=== PATIENT | male | born 1965 | race Caucasian/White ===

== ENCOUNTER 2017-11-26 10:21 | Emergency (ER) | payer BC ==
[2017-11-26 10:59] VITALS: BP 106/56
--- NOTE | 2017-11-26 11:05 | UC ---
Back Pain HPI - HPI Summary HPI Summary: 52 yo male presents with low back pain. He tells me that he is an avid hiker and 2 days ago was hiking and slipped on some rocks - legs went out from underneath him and his lower back landed on a rock/hard patch. Had immediate pain, but was able to get up and continue. Has not taken anything for his pain. Last night went to his daughter's recital. Denies numbness, tingling, dysuria, loss of bladder/bowel control, or saddle anesthesia. - History of Current Complaint Chief Complaint: UCBackPain Stated Complaint: LOWER BACK INJURY Time Seen by Provider: 11/26/17 11:05 Hx Obtained From: Patient Onset/Duration: Sudden Onset Severity Initially: Severe Severity Currently: Severe Pain Intensity: 9 Pain Scale Used: 0-10 Numeric Character: Aching, Throbbing, Spasmodic, Stiffness Aggravating Factor(s): Movement Alleviating Factor(s): Rest, Position Associated Signs And Symptoms: Positive: Negative - Allergies/Home Medications Allergies/Adverse Reactions: Allergies Allergy/AdvReac Type Severity Reaction Status Date / Time No Known Allergies Allergy Verified 11/26/17 11:00 PMH/Surg Hx/FS Hx/Imm Hx - Additional Past Medical History Additional PMH: None Previously Healthy: Yes - Surgical History Surgical History: Yes Surgery Procedure, Year, and Place: hernia repair, tendon repair. trauma to R shoulder. back surgery. trach w/reversal - Family History Known Family History: Positive: None - Social History Occupation: Employed Full-time Lives: With Family Alcohol Use: None Substance Use Type: None Smoking Status (MU): Never Smoked Tobacco - Immunization History Most Recent Tetanus Shot: UTD Review of Systems Constitutional: Negative Skin: Negative Respiratory: Negative Cardiovascular: Negative Gastrointestinal: Negative Genitourinary: Negative Neurovascular: Negative Musculoskeletal: Other: - LBP Neurological: Negative Psychological: Negative All Other Systems Reviewed And Are Negative: Yes Physical Exam - Summary Physical Exam Summary: GENERAL: NAD. WDWN. No pain distress. SKIN: No rashes, sores, lesions, or open wounds. NECK: Supple. FROM. Nontender. No lymphadenopathy. CHEST: CTAB. No r/r/w. No accessory muscle use. Breathing comfortably and in no distress. CV: RRR. Without m/r/g. Pulses intact. Brisk cap refill. MSK: TTP over lumbar paraspinal muscles and area of impact on left. Pain with flexion and extension of spine. Positive SLR b/l. Strength 5/5 B/L LEs including dorsiflexion and plantar flexion. FROM B/L LEs. No edema. NEURO: Alert. CN II-XII grossly intact. Sensations intact B/L LEs L3-S1. PSYCH: Age appropriate behavior. Triage Information Reviewed: Yes Vital Signs: Initial Vital Signs Temp 97.4 F 11/26/17 10:55 Pulse 76 11/26/17 10:55 Resp 18 11/26/17 10:55 BP 106/56 11/26/17 10:55 Pulse Ox 98 11/26/17 10:55 Back Pain Course/Dx - Course Course Of Treatment: Given trauma, I wanted to order a CT of the lumbar spine, but pt refused as he has had CTs in the past and is afraid of accumulating radiation. Advised that if XRs reveal abnormalities or if his pain persists - a CT and/or MRI shoulder be performed. XR: IMPRESSION: Degenerative disc disease at L3-L4, L4-L5 and L5-S1. 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 Suspect contusion. He is asking for pain medication. He has taken oxycodone in the past with good relief - does not want percocet as he takes tylenol on his own. f/u prn with PCP. [facility] Reference #: [id number] and ok - Differential Dx/Diagnosis Provider Diagnoses: Low back contusion. Fall Discharge - Sign-Out/Discharge Documenting (check all that apply): Discharge/Admit/Transfer - Discharge Plan Condition: Stable Disposition: HOME Prescriptions: Cyclobenzaprine TAB* [Flexeril 10 MG TAB*] 10 mg PO TID PRN #21 tab PRN Reason: Pain oxyCODONE TAB* [Roxycodone TAB 5 mg*] 5 mg PO Q8H PRN #9 tab MDD 3 PRN Reason: Pain Patient Education Materials: Acute Low Back Pain (ED) Referrals: Sukhdev Carrillo MD [Primary Care Provider] - Additional Instructions: If you develop a fever, shortness of breath, chest pain, new or worsening symptoms - please call your PCP or go to the ED. - Billing Disposition and Condition Condition: STABLE Disposition: HOME
--- NOTE | 2017-11-26 12:12 | RAD ---
Indication: Bilateral hip pain. 2 views of the right hip and 2 views of left hip are reviewed. The right hip demonstrates moderate degenerative changes. Osteophyte formation is noted. Mild joint space narrowing is noted. The left hip demonstrates degenerative changes of left hip. Osteophyte formation is noted. Pelvic ring is intact. Sacroiliac joints are unremarkable. 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
--- NOTE | 2017-11-26 12:14 | RAD ---
Indication: Low back pain. 5 views of lumbar spine demonstrate vertebral bodies to be normal in height. Mild disc space narrowing at L3-L4, L4-L5 and L5-S1 is noted. The spinal canal appears to be intact. No fracture is identified. IMPRESSION: Degenerative disc disease at L3-L4, L4-L5 and L5-S1.
== END 2017-11-26 13:10 | disposition home or self-care (01) ==
LOC: UCEAST 10:21
DX: S30.0XXA Contusion of lower back and pelvis, initial encounter (principal); W01.198A Fall on same level from slipping, tripping and stumbling with subsequent striking against other object, initial encounter; Y93.01 Activity, walking, marching and hiking; Y92.9 Unspecified place or not applicable
CPT/HCPCS: 72110; 73523; 99201; G0463